=== PATIENT | male | born 1955 | race Caucasian/White ===

== ENCOUNTER 2019-07-11 08:44 | Day surgery (SDC) | payer BC, MEDICAID, MEDICARE ==
[2019-07-11] MEDS ORDERED: Sodium Chloride 0.9% 1,000 ML IV SCH (09:15)
[2019-07-11] MEDS ORDERED: fentaNYL 100 MCG/2 ML SDV ONE (09:42)
[2019-07-11] MEDS ORDERED: Propofol 200 MG/20 ML SDV ONE (09:42)
[2019-07-11] MEDS ORDERED: Midazolam 1 MG/ML 2 ML SDV ONE (09:42)
[2019-07-11 11:33] VITALS: BP 120/86; PULSE 59
--- NOTE | 2019-07-11 14:36 | PROC ---
DATE OF PROCEDURE: 07/11/2019 SURGEON: Raymond Gallego MD PREPROCEDURE DIAGNOSIS: Screening colonoscopy. POSTPROCEDURE DIAGNOSES: 1. Screening colonoscopy. 2. A 0.3 cm sigmoid polyp removed using biopsy forceps. Risks and goals of procedure reviewed with the patient. He gave informed consent to proceed. He was brought back to the endoscopy room. Sedation monitoring provided by Yani from the Anesthesia Service. A time-out was held to confirm the right patient, right side, right procedure, as well as to identify any concerns, of which there were none. He was placed in a left lateral decubitus position. After IV sedation was achieved, digital rectal exam was performed, which was unremarkable. Following this, a flexible colonoscope was placed and advanced all through the colon to the cecum, which was identified by the ileocecal valve and appendiceal orifice. The scope was slowly withdrawn back through the colon to the rectum where it was retroflexed, straightened, and removed. He was found to have a 0.3 cm polyp in the sigmoid colon, which was removed using biopsy forceps. No other mucosal polyps, masses, or lesions were seen, and the procedure was, otherwise, completed without complication. He will be monitored in PAR and outpatient area until fully recovered from IV sedation and then discharged to home. Pathologic review of the biopsy specimen is pending at this time. Raymond Gallego MD /[id number]
--- NOTE | 2019-07-19 08:18 | LETTER ---
07/18/2019 Mr. Tal Antunez [address] [place] [address] RE: TAL ANTUNEZ : 1955 Dear Mr. Antunez: This letter concerns pathology results from the polyp removed at the time of your colonoscopy last week. 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 This polyp is a benign polyp or noncancerous, but is the type that over several years could develop into a colon cancer. For this reason, I recommended you have a followup colonoscopy again in 5 years. If you have any questions concerning these results or recommendations, please feel free to contact me. Sincerely, /[id number]
== END 2019-07-11 11:20 | disposition home or self-care (01) ==
LOC: JP.SDS 08:44
PROVIDERS: ATTEND Hospitalist
DX: Z12.11 Encounter for screening for malignant neoplasm of colon (principal); I10 Essential (primary) hypertension; K21.9 Gastro-esophageal reflux disease without esophagitis; M19.90 Unspecified osteoarthritis, unspecified site
CPT/HCPCS: 45380; J2250; J2704; J3010; J7030; 88305

== ENCOUNTER 2020-06-09 17:59 | Observation (INO) | payer MEDICARE ==
[2020-06-09] MEDS ORDERED: Ketorolac 60 MG/2 ML SDV IM ONE (18:33)
[2020-06-09] MEDS ORDERED: Acetaminophen/oxyCODONE 325-5 MG Tab PO STA ×2 (18:33→19:35)
--- NOTE | 2020-06-09 18:39 | EDM.PDOC ---
ED HPI GENERAL MEDICAL PROBLEM - General Chief Complaint: Lower Extremity Injury/Pain Stated Complaint: BACK , HIP PAIN Time Seen by Provider: 06/09/20 18:25 Source of Information: Reports: Patient, Old Records History Limitations: Reports: No Limitations - History of Present Illness INITIAL COMMENTS - FREE TEXT/NARRATIVE: 64 yo male was stiff and cold from [place] out [place] ice fishing today and was loading his trailer getting ready to leave and had to perform a heavy lift of the trailer hitch end and felt a tear in his L buttocks. Now hard to straighten that L leg. Got a route driver salesperson to bring him in. No past hx of pain to this area. Onset: Today, Sudden Onset Date: 06/09/20 Duration: Minutes:, Constant Location: Reports: Lower Extremity, Left Quality: Reports: Ache Severity: Moderate (at rest. 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: Reports: Other (see below) (none) - Related Data Allergies Allergy/AdvReac Type Severity Reaction Status Date / Time No Known Allergies Allergy Verified 06/09/20 18:06 Home Meds: Home Meds Ascorbic Acid [Vitamin C] 1,000 mg PO DAILY 07/07/19 [History] Lisinopril/Hydrochlorothiazide [Lisinopril-Hctz 20-12.5 mg Tab] 1 each PO DAILY 07/07/19 [History] Multivitamin with Minerals [Multiple Vitamin] 1 tab PO DAILY 07/07/19 [History] Niacin 1,000 mg PO DAILY 07/07/19 [History] [place]-3 Fatty Acids/Fish Oil [Fish Oil 1,000 mg Softgel] 5 cap PO DAILY 07/07/19 [History] Vitamin B Complex [B Complex] 1 each PO DAILY 07/07/19 [History] Vitamin E 400 unit PO DAILY 07/07/19 [History] Past Medical History HEENT History: Reports: Other (See Below) Other HEENT History: sinus problems Cardiovascular History: Reports: Hypertension Gastrointestinal History: Reports: GERD Genitourinary History: Reports: Prostate Disorder Musculoskeletal History: Reports: Arthritis Neurological History: Reports: Headaches, Chronic, Other (See Below) Other Neuro History: spinal stenosis - Past Surgical History HEENT Surgical History: Reports: None Cardiovascular Surgical History: Reports: None GI Surgical History: Reports: Colonoscopy Male Surgical History: Reports: None Neurological Surgical History: Reports: Discectomy Musculoskeletal Surgical History: Reports: None Social & Family History - Tobacco Use Tobacco Use Status *Q: Never Tobacco User - Caffeine Use Caffeine Use: Reports: Coffee Review of Systems - Review of Systems Review Of Systems: See Below Constitutional: Reports: No Symptoms Musculoskeletal: Reports: Leg Pain (proximal L leg posteriorly) Skin: Reports: No Symptoms Neurological: Reports: No Symptoms ED EXAM, GENERAL - Physical Exam Exam: See Below Exam Limited By: No Limitations General Appearance: Alert, WD/WN, No Apparent Distress Peripheral Pulses: 0: Dorsalis Pedis (R) GI/Abdominal: Soft, Non-Tender, No Distention Extremities: Normal Inspection, No Pedal Edema, Limited Range of Motion (unable to extend at L hip. Painful with palpation at L ischial tuberosity. No palpable defect. ). No: Normal Range of Motion, Non-Tender, Pedal Edema, Increased Warmth, Redness Neurological: Alert, Oriented, CN II-XII Intact, Normal Cognition, No Motor/Sensory Deficits Psychiatric: Normal Affect, Normal Mood Skin Exam: Warm, Dry, Intact, Normal Color, No Rash Course - Vital Signs Last Recorded V/S: Last Vital Signs Temp 36.7 C 06/09/20 18:17 Pulse 70 06/09/20 18:17 Resp 14 06/09/20 18:17 BP 130/72 06/09/20 18:17 Pulse Ox 98 06/09/20 18:17 - Orders/Labs/Meds Meds: Medications Discontinued Medications Generic Name Dose Route Start Last Admin Trade Name Emy PRN Reason Stop Dose Admin Ketorolac Tromethamine 60 mg 06/09/20 18:33 06/09/20 18:51 Toradol IM 06/09/20 18:34 60 mg ONETIME ONE Administration Oxycodone/Acetaminophen 1 tab 06/09/20 18:33 06/09/20 18:49 Percocet 325-5 Mg PO 06/09/20 18:34 1 tab ONETIME STA Administration Departure - Departure Time of Disposition: 19:40 Disposition: Home, Self-Care 01 Condition: Fair Clinical Impression: Avulsion of left hamstring muscle Qualifiers: Encounter type: initial encounter Qualified Code(s): S76.392A - Other specified injury of muscle, fascia and tendon of the posterior muscle group at thigh level, left thigh, initial encounter - Discharge Information *PRESCRIPTION DRUG MONITORING PROGRAM REVIEWED*: No *COPY OF PRESCRIPTION DRUG MONITORING REPORT IN PATIENT MICHAEL: No Instructions: Muscle Strain, [id number] Referrals: PCP,None [Primary Care Provider] - Forms: ED Department Discharge Additional Instructions: Use ibuprofen 600 mg every 6 hrs with food for pain relief, next dose after midnight tonight. Rest. Take either acetaminophen OR Percocet for added pain relief. Crutch walking. Someone will contact you tomorrow about an appt later this week with our orthopedic doctor. Sepsis Event Note (ED) - Evaluation Sepsis Screening Result: No Definite Risk - Focused Exam Vital Signs: Vital Signs Temp Pulse Resp BP Pulse Ox 06/09/20 18:17 36.7 C 70 14 130/72 98
[2020-06-10] MEDS: Acetaminophen/oxyCODONE 325-5 MG Tab PO PRN ×2 (00:54→10:58)
--- NOTE | 2020-06-10 08:48 | HP ---
CHIEF COMPLAINT: Left hamstring pain. HISTORY OF PRESENT ILLNESS: This 64-year-old who was out [place] in his [place] was trying to lift a heavy trailer and felt immediate pain in his left hamstring and buttocks region. He had previous disk surgery and had radicular symptoms in the left side in the past about 6 years ago, that he had part of the disks removed and foraminal opening, because of a compressed nerve. He had severe pain with this injury and was brought into the emergency room for further evaluation. He was evaluated by the emergency room physician. It felt to be a hamstring injury, and they tried to get him onto crutches, so he could go home after getting some Percocet and Toradol in the emergency room. He was not able to transfer because of the severe pain. I was asked to admit the patient for further evaluation and treatment. The patient otherwise denies any other complaints at this time. PAST MEDICAL HISTORY: 1. 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 2. Essential hypertension. 3. Hyperlipidemia. MEDICATIONS: Vitamin C 1000 mg daily, lisinopril/hydrochlorothiazide 20/12.5 daily, multivitamin, niacin 1000 mg daily, [place]-3 fish oil, B-complex, vitamin E. ALLERGIES: NO KNOWN DRUG ALLERGIES. SOCIAL HISTORY: He is a nonsmoker. No significant alcohol use. . FAMILY HISTORY: Mother had some kidney issues. Father, liver and pancreatic cancer. REVIEW OF SYSTEMS: Denies headaches, vision changes, or upper respiratory symptoms. No chest pain, shortness of breath, cough, nausea, vomiting, diarrhea, or constipation. No urinary problems reported. No swelling in his legs. No skin problems. No neurologic complaints other than he has some numbness in his left leg. I think he had some to begin with before this injury. Does have a severe pain in his left hamstring and buttocks region. OBJECTIVE: VITAL SIGNS: Weight 83 kg, temp 36.7, pulse is 70, blood pressure 130/72, respirations 14, and O2 saturation 98% on room air. GENERAL: The patient is alert and oriented x3. Fairly comfortable when just laying there, but if he tries to get up he has severe pain. HEENT: Unremarkable. NECK: Supple. No adenopathy, thyromegaly, JVD, or carotid bruits. LUNGS: Clear. HEART: Regular without murmurs. ABDOMEN: Soft and nontender. No mass or organomegaly palpated. EXTREMITIES: No edema. He does have an Marek wrap on his left hamstring and thigh. He does have discomfort from the distal hamstring up to the buttocks. Unable to bear weight and ambulate on it. ASSESSMENT: 1. Left hamstring injury. Unable to be discharged from the emergency room because of pain. We will admit him for pain control. He has been getting oral Percocet, which we will continue. We will start ice therapy and see if we can have him see Orthopedic surgery in the morning. We will admit him under observation. Anticipate less than 2 midnight stays. 2. Essential hypertension. We will continue with his current blood pressure medicine. Fred Mehta MD /[id number]
[2020-06-10] MEDS ORDERED: Lisinopril 20 MG Tab PO SCH (09:00)
[2020-06-10] MEDS ORDERED: Hydrochlorothiazide 12.5 MG Cap PO SCH (09:00)
[2020-06-10] MEDS ORDERED: Non-Formulary Medication 1 Each (Lisinopril/Hydrochlorothiazide [Lisinopril-Hctz 20-12.5 M PO SCH (09:00)
[2020-06-10] MEDS ORDERED: Ascorbic Acid 500 MG Tab PO SCH (09:00)
[2020-06-10] MEDS ORDERED: Niacin 500 MG Cap.ER PO SCH (09:00)
[2020-06-10] MEDS ORDERED: Multivitamins with Iron/Calcium/Folic Acid/Minerals Tab PO SCH (09:00)
[2020-06-10 10:01] VITALS: BP 134/83; PULSE 61
== END 2020-06-10 13:00 | disposition home or self-care (01) ==
LOC: JP.ED 17:59 → JP.MS 21:53
PROVIDERS: ADMIT Family Medicine; ATTEND Internal Medicine
DX: S76.302A Unspecified injury of muscle, fascia and tendon of the posterior muscle group at thigh level, left thigh, initial encounter (principal); I10 Essential (primary) hypertension; E78.5 Hyperlipidemia, unspecified; Z79.899 Other long term (current) drug therapy
CPT/HCPCS: 96372; 97116-GP; 97161-GP; 99283; 99284; A9270-GY; G0378; J1885

== ENCOUNTER 2023-01-07 06:24 | Day surgery (SDC) | payer MEDICARE ==
[~2023-01-07 06:24] MED LIST: Midazolam 1 MG/ML 2 ML SDV ONE; Propofol 200 MG/20 ML SDV ONE; fentaNYL 100 MCG/2 ML SDV ONE
[2023-01-07] MEDS ORDERED: Sodium Chloride 0.9% 1,000 ML IV SCH (07:30)
[2023-01-07 09:30] VITALS: BP 117/87; PULSE 70
== END 2023-01-07 09:50 | disposition home or self-care (01) ==
LOC: JP.SDS 06:24
PROVIDERS: ATTEND Surgery
DX: Z12.11 Encounter for screening for malignant neoplasm of colon (principal); K57.30 Diverticulosis of large intestine without perforation or abscess without bleeding; Z86.010 Personal history of colon polyps; Z79.899 Other long term (current) drug therapy
CPT/HCPCS: G0105; J2250; J2704; J3010; J7030